=== PATIENT | female | born 1990 | race African-American/Black ===

== ENCOUNTER 2016-09-18 11:09 | Emergency (ER) | payer MEDICAID ==
[~2016-09-18] VITALS: Ht 167.6 cm; Wt 68.0 kg
[~2016-09-18 11:09] MED LIST: DICL75 PO; HYDR50TA94 PO; NEXP68IM
[2016-09-18 11:10] VITALS: BP 149/97; PULSE 78; RESP 20; TEMP 98.3; O2SAT 100
[2016-09-18 11:42] LABS: AUTOMATED NEUTROPHIL # 3.3 TH/MM3 (1.8-7.7); BASOPHIL % 0.5 % (0.0-2.0); EOSINOPHIL # 0.1 TH/MM3 (0-0.4); HEMATOCRIT 30.2 % (35.0-46.0); HEMO FLAGS DIFF FINAL; LYMPH % 27.2 % (9.0-44.0); LYMPHOCYTE # 1.4 TH/MM3 (1.0-4.8); MEAN CELL VOLUME 87.1 FL (80.0-100.0); MEAN CORPUSCULAR HGB CONC 32.2 % (32.0-36.0); NEUT % 61.3 % (16.0-70.0); PLATELET COUNT 267 TH/MM3 (150-450); RED BLOOD COUNT 3.46 MIL/MM3 (4.00-5.30); RED CELL DISTRIBUTION WIDTH 14.4 % (11.6-17.2); WHITE BLOOD COUNT 5.3 TH/MM3 (4.0-11.0)
--- NOTE | 2016-09-18 11:51 | PD ---
HPI Chief Complaint: Chest Pain Time Seen by Provider: 11:51 Travel History International Travel<30 days: No Contact w/Intl Traveler<30days: No Traveled to known affect area: No History of Present Illness HPI 25-year-old Afro-[place] female presents to emergency Department with intermittent chest pain in the past 2 days. Patient has noted some left arm numbness today. Patient states chest tightness and pressure over the anterior chest which is worse with exertion today. Patient does admit to high anxiety and stress this past couple of weeks. Patient denies fever, chills, cough, or wheezing. Patient denies abdominal pain or urinary symptoms. Patient had similar episode in March 2016 with full workup at that time. Patient denies lower extremity pain or swelling. Patient has no known drug allergies. PFSH Past Medical History Anxiety: Yes Depression: Yes Diminished Hearing: No Respiratory: Yes (reports clot behind placenta this ) Immunizations Current: Yes ?: Not LMP: 09/12/16 : 7 Para: 4 Miscarriage: 3 : 0 Social History Alcohol Use: Yes (OCC) Tobacco Use: Yes (every other day) Substance Use: Yes (Marijuana - Occ) Allergies-Medications (Allergen,Severity, Reaction): Coded Allergies: No Known Allergies (Verified , 09/18/16) Reported Meds & Prescriptions Reported Meds & Active Scripts Active No Active Prescriptions or Reported Medications Review of Systems Except as stated in HPI: all other systems reviewed are Neg General / Constitutional: No: Fever Eyes: No: Visual changes HENT: No: Headaches Cardiovascular: Positive: Chest Pain or Discomfort (see history present illness.), No: Palpitations, Irregular Rhythm, Tachycardia, Diaphoresis, Syncope, Dyspnea on exertion, Varicosities, Edema, Varicosities, Phlebitis, Claudication Respiratory: No: Shortness of Breath Gastrointestinal: No: Nausea, Vomiting, Diarrhea, Abdominal Pain Genitourinary: No: Dysuria Musculoskeletal: No: Pain Skin: No Rash Neurologic: No: Weakness Psychiatric: No: Depression Endocrine: No: Polydipsia Hematologic/Lymphatic: No: Easy Bruising Physical Exam Narrative GENERAL: Patient appears in no acute distress. She is a mature to the room without difficulty. SKIN: Warm and dry. Normal color. Normal turgor. HEAD: Atraumatic. Normocephalic. EYES: Pupils equal and round. No scleral icterus. No injection or drainage. ENT: No nasal bleeding or discharge. Mucous membranes pink and moist. Pharynx is clear. Airway is patent. NECK: Trachea midline. No JVD. Neck is supple nontender. CARDIOVASCULAR: Regular rate and rhythm. No murmurs gallops or rubs. RESPIRATORY: No accessory muscle use. Clear to auscultation. Breath sounds equal bilaterally. GASTROINTESTINAL: Abdomen soft, non-tender, nondistended. Hepatic and splenic margins not palpable. MUSCULOSKELETAL: Extremities without clubbing, cyanosis, or edema. No obvious deformities. NEUROLOGICAL: Awake and alert. No obvious cranial nerve deficits. Motor grossly within normal limits. Five out of 5 muscle strength in the arms and legs. Normal speech. PSYCHIATRIC: Appropriate mood and affect; insight and judgment normal. Data Data Last Documented VS Vital Signs Date Time Temp Pulse Resp B/P Pulse Ox O2 Delivery O2 Flow Rate FiO2 09/18/16 11:56 89 18 100 Room Air 09/18/16 11:10 98.3 149/97 Orders Electrocardiogram (09/18/16 11:16) Complete Blood Count With Diff (09/18/16 11:16) Basic Metabolic Panel (Bmp) (09/18/16 11:16) Ckmb (Isoenzyme) Profile (09/18/16 11:16) Troponin I (09/18/16 11:16) Chest, Single Ap (09/18/16 11:16) Iv Access Insert/Monitor (09/18/16 11:16) Ecg Monitoring (09/18/16 11:16) Oxygen Administration (09/18/16 11:16) Oximetry (09/18/16 11:16) D-Dimer (09/18/16 11:53) Lorazepam (Ativan) (09/18/16 12:00) CKMB (09/18/16 11:29) CKMB% (09/18/16 11:29) Iv Access Insert/Monitor (09/18/16 12:46) Ct Pulmonary Angiogram (09/18/16 12:46) Urinalysis - C+S If Indicated (09/18/16 13:00) Sodium Chlor 0.9% 1000 Ml Inj (Ns 1000 M (09/18/16 13:15) Iohexol 350 Inj (Omnipaque 350 Inj) (09/18/16 13:49) Sodium Chlor 0.9% 1000 Ml Inj (Ns 1000 M (09/18/16 14:30) Ckmb (Isoenzyme) Profile (09/18/16 14:40) CKMB (09/18/16 14:48) CKMB% (09/18/16 14:48) Labs Laboratory Tests Test 09/18/16 09/18/16 09/18/16 11:29 13:55 14:48 White Blood Count 5.3 TH/MM3 Red Blood Count 3.46 MIL/MM3 Hemoglobin 9.7 GM/DL Hematocrit 30.2 % Mean Corpuscular Volume 87.1 FL Mean Corpuscular Hemoglobin 28.0 PG Mean Corpuscular Hemoglobin 32.2 % Concent Red Cell Distribution Width 14.4 % Platelet Count 267 TH/MM3 Mean Platelet Volume 9.1 FL Neutrophils (%) (Auto) 61.3 % Lymphocytes (%) (Auto) 27.2 % Monocytes (%) (Auto) 9.0 % Eosinophils (%) (Auto) 2.0 % Basophils (%) (Auto) 0.5 % Neutrophils # (Auto) 3.3 TH/MM3 Lymphocytes # (Auto) 1.4 TH/MM3 Monocytes # (Auto) 0.5 TH/MM3 Eosinophils # (Auto) 0.1 TH/MM3 Basophils # (Auto) 0.0 TH/MM3 CBC Comment DIFF FINAL Differential Comment D-Dimer Quantitative (PE/DVT) 1.47 MG/L FEU Sodium Level 143 MEQ/L Potassium Level 3.5 MEQ/L Chloride Level 109 MEQ/L Carbon Dioxide Level 25.6 MEQ/L Anion Gap 8 MEQ/L Blood Urea Nitrogen 10 MG/DL Creatinine 0.90 MG/DL Estimat Glomerular Filtration 91 ML/MIN Rate Random Glucose 96 MG/DL Calcium Level 8.2 MG/DL Total Creatine Kinase 1964 U/L 1608 U/L Creatine Kinase MB 3.8 NG/ML Creatine Kinase MB % 0.2 % Troponin I 0.04 NG/ML Urine Color LIGHT-YELLOW Urine Turbidity CLEAR Urine pH 8.0 Urine Specific [place] 1.020 Urine Protein NEG mg/dL Urine Glucose (UA) NEG mg/dL Urine Ketones NEG mg/dL Urine Occult Blood NEG Urine Nitrite NEG Urine Bilirubin NEG Urine Urobilinogen 2.0 MG/DL Urine Leukocyte Esterase NEG Urine RBC 1 /hpf Urine WBC 1 /hpf Urine Squamous Epithelial 1 /hpf Cells Urine Bacteria RARE /hpf Microscopic Urinalysis Comment CULT NOT INDICATED MDM Medical Decision Making Medical Screen Exam Complete: Yes Emergency Medical Condition: Yes Medical Record Reviewed: Yes Differential Diagnosis Atypical chest pain. Anxiety. Possible pulmonary embolism. Narrative Course Patient is medically stable at time of exam. EKG is reviewed showing normal sinus rhythm with no ST changes. This is reviewed with Dr. Oseguera. Chest x-ray is reviewed showing no acute process per radiologist. Labs are pending including CBC, CMP, and d-dimer. Patient is given lorazepam 1 mg by mouth. CBC shows hemoglobin of 9.7, with hematocrit of 30.2. Otherwise unremarkable. CMP unremarkable other than a slightly elevated chloride of 109 and calcium 8.2. Troponin 0.04. Total creatinine kinase is elevated 1964. CK-MB is elevated at 3.4. D-dimer is elevated at 1.47. IV access is obtained patient is given 1000 mL normal saline bolus. CTA is ordered as well. Urinalysis is ordered. Patient and labs are reviewed with Dr. Younger. Urinalysis shows no acute finding. CT is negative for PE or other significant findings. Patient is given an additional thousand mL's normal saline bolus. Repeat CPK MB is improved after hydration. Patient is felt stable to be discharged home. Patient will be sent home with instructions to rest and push fluids and follow- up with her primary care physician as needed. Diagnosis Primary Impression: Atypical chest pain Additional Impression: Dehydration Referrals: [facility] Primary Care Physician Patient Instructions: Chest Pain (ED), Dehydration (ED), General Instructions Scripts No Active Prescriptions or Reported Meds Disposition: 01 DISCHARGE HOME Condition: Stable Dereje Hoskins Sep 18, 2016 11:51
[2016-09-18 11:56] VITALS: RESP 18; O2SAT 100
[2016-09-18 11:59] LABS: BICARBONATE 25.6 MEQ/L (21.0-32.0); POTASSIUM 3.5 MEQ/L (3.5-5.1)
[2016-09-18] MEDS ORDERED: LORazepam 1 MG TAB PO ONE (12:00)
--- NOTE | 2016-09-18 12:02 | RADRPT ---
EXAM DATE/TIME: 09/18/2016 11:49 [facility] COMPARISON: CHEST SINGLE AP, March 26, 2016, 20:05. INDICATIONS : Patient has had chest pain for three days. She has left arm numbness. MEDICAL HISTORY : None. SURGICAL HISTORY : None. ENCOUNTER: Initial ACUITY: 1 day PAIN SCORE: 6/10 LOCATION: Bilateral chest FINDINGS: A single view of the chest demonstrates the lungs to be symmetrically aerated without evidence of mas s, infiltrate or effusion. The cardiomediastinal contours are unremarkable. Osseous structures are intact. CONCLUSION: No acute disease. Alfredo Saab MD FACR on September 18, 2016 at 12:00 Board Certified Radiologist. This report was verified electronically.
[2016-09-18 12:25] LABS: CKMB 3.8 NG/ML (0.5-3.6)
[2016-09-18] MEDS ORDERED: SODIUM CHLOR 0.9% 1000 ML INJ 1,000 ML IV ONE ×2 (13:15→14:30)
[2016-09-18] MEDS ORDERED: IOHEXOL 350 MG/ML 10 ML VIAL (for RAD DIAG) IV ONE (13:49)
--- NOTE | 2016-09-18 13:57 | RADRPT ---
EXAM DATE/TIME: 09/18/2016 13:35 [facility] COMPARISON: No previous studies available for comparison. INDICATIONS : Chest pain with left arm numbness IV CONTRAST: 75 cc Omnipaque 350 (iohexol) IV RADIATION DOSE: 6.82 CTDIvol (mGy) MEDICAL HISTORY : None SURGICAL HISTORY : None. ENCOUNTER: Initial ACUITY: 1 day PAIN SCALE: 4/10 LOCATION: anterior chest TECHNIQUE: Volumetric scanning of the chest was performed using a pulmonary embolism protocol MIP images were reconstructed. Using automated exposure control and adjustment of the mA and/or kV acco rding to patient size, radiation dose was kept as low as reasonably achievable to obtain optimal diag nostic quality images. FINDINGS: PULMONARY ARTERIES:No filling defects are seen in the pulmonary arteries through the segmental level. LUNGS: There is no consolidation or pneumothorax . No concerning pulmonary nodule is visualized. PLEURAE: There is no pleural thickening or pleural effusion. MEDIASTINUM: There is good visualization of the great vessels of the middle mediastinum. No evid ence of mediastinal or hilar adenopathy/mass. MUSCULOSKELETAL: Within normal limits for patient age. MISCELLANEOUS: The visualized upper abdominal organs demonstrate no acute abnormality. CONCLUSION: 1. Negative for central pulmonary emboli. 2. There are no suspicious lung lesions identified. Board Certified Radiologist. This report was verified electronically.
[2016-09-18 14:17] LABS: BACTERIA, URINE RARE /hpf; BLOOD, URINE NEG (NEG); GLUCOSE,URINE NEG (NEG); KETONE, URINE NEG (NEG); NITRITE,URINE NEG (NEG); SQUAMOUS EPITHELIAL CELL URINE 1 /hpf (0-5); URINE COLOR LIGHT-YELLOW (YELLW/STRAW)
[2016-09-18 14:19] LABS: COMMENT (UR) CULT NOT INDICATED; CULTURE IF INDICATED CULT NOT INDICATED
[2016-09-18 16:05] LABS: CKMB 3.2 NG/ML (0.5-3.6)
--- NOTE | 2016-09-19 15:34 | EKG ---
Date Performed: 09/18/2016 Time Performed: 11:23:40 PTAGE: 25 years EKG: Sinus rhythm NORMAL ECG PREVIOUS TRACING : 03/26/2016 19.51 Compared to prior tracing no significant change DOCTOR: Omayra Arellano Interpretating Date/Time 09/19/2016 15:32:49
== END 2016-09-18 16:14 | disposition home or self-care (01) ==
LOC: NEPE 11:09
DX: R07.89 Other chest pain (principal); E86.0 Dehydration; R20.0 Anesthesia of skin; F17.210 Nicotine dependence, cigarettes, uncomplicated
CPT/HCPCS: 71010; 71275; 80048; 81001; 82550; 82552; 84484; 85025; 85379; 93005; 96360; 96361; 99285; J7030; Q9967

== ENCOUNTER 2017-08-16 14:27 | Emergency (ER) | payer MEDICAID ==
[~2017-08-16] VITALS: Ht 167.6 cm; Wt 60.0 kg
[2017-08-16 14:28] VITALS: BP 148/91; PULSE 110; RESP 13; TEMP 98.9; O2SAT 94
--- NOTE | 2017-08-16 16:36 | PD ---
HPI Chief Complaint: Anxiety Time Seen by Provider: 16:14 Travel History International Travel<30 days: No Contact w/Intl Traveler<30days: No Traveled to known affect area: No History of Present Illness HPI 26-year-old female presents to the emergency department with 2 complaints. Her first complaint is tightness and radiation of pain across her chest that comes spontaneously for the past 3 days. She has had similar symptoms in the past and relates this to stress and anxiety. Denies chest pain or tightness at this time. Denies shortness of breath now or with onset of the chest pain. Denies tobacco use. Reports marijuana use. Denies family history of cardiac events. Has been worked up for chest pain in the past. Denies recent illness to include cough, nasal congestion, fevers, sore throat, ear pain. Has not taken any medications or tried any treatments to alleviate her symptoms. No known aggravating or relieving factors. Her second complaint is pelvic pressure 6 months that comes and goes. Denies pelvic pressure this time. That she has a lump to the left side of her vagina that she has noticed x3 weeks. Denies vaginal discharge, odor, lesions. Denies dysuria. Denies fever, vomiting, abdominal pain. Last menstrual period was 2 days ago. Pelvic pressure is worse when she sits down or has sex. Has not taken any medications for any treatments to alleviate her symptoms. No known relieving factors. Denies significant past medical history. No primary care provider. Denies allergies. Has no other medical complaints. No other modifying factors or associated signs and symptoms. PFSH Past Medical History Anxiety: Yes Depression: Yes Diminished Hearing: No Respiratory: Yes (reports clot behind placenta this ) Immunizations Current: Yes ?: Not LMP: 08/13/17 : 7 Para: 4 Miscarriage: 3 : 0 Social History Alcohol Use: Yes (OCC) Tobacco Use: No Substance Use: Yes (Marijuana - Occ) Allergies-Medications (Allergen,Severity, Reaction): Coded Allergies: No Known Allergies (Verified Adverse Reaction, Unknown, 08/16/17) Reported Meds & Prescriptions Reported Meds & Active Scripts Active Doxycycline Hyclate 100 Mg Cap 100 Mg PO BID 14 Days Review of Systems Except as stated in HPI: all other systems reviewed are Neg Physical Exam Narrative GENERAL: Well-nourished, well-developed black female patient, in no acute distress; afebrile, nontoxic-appearing SKIN: Warm and dry. HEAD: Atraumatic. Normocephalic. EYES: Pupils equal and round. No scleral icterus. No injection or drainage. ENT: Mucous membranes pink and moist. NECK: Trachea midline. No lymphadenopathy. CARDIOVASCULAR: Regular rate and rhythm. No murmur appreciated. RESPIRATORY: No accessory muscle use. Clear to auscultation. Breath sounds equal bilaterally. GASTROINTESTINAL: Abdomen soft, non-tender, nondistended. Bilateral pelvic region nontender to palpation. Hepatic and splenic margins not palpable. No guarding, rigidity, rebound tenderness. PELVIC: Exam done in the presence of a nurse. Speculum exam reveals edematous and erythematous cervix with light green, mucopurulent, foul-smelling discharge. There is a palpable lump to the right vaginal mojaora near the base of the vagina; it is not visible; nontender palpation; groin lymphadenopathy bilaterally that the patient states is normal for her; suspecting lymph node enlargement, but will have patient follow up with core stripper. Bimanual exam reveals no palpable masses or adnexa tenderness, no uterine tenderness. No cervical motion tenderness. BACK: No CVA tenderness. MUSCULOSKELETAL: No obvious deformities. No clubbing. No cyanosis. No edema. NEUROLOGICAL: Awake and alert. No obvious cranial nerve deficits. Motor grossly within normal limits. Normal speech. PSYCHIATRIC: Appropriate mood and affect; insight and judgment normal. Data Data Last Documented VS Vital Signs Date Time Temp Pulse Resp B/P (MAP) Pulse Ox O2 Delivery O2 Flow Rate FiO2 08/16/17 17:33 93 16 100 Room Air 08/16/17 14:28 98.9 Orders Orders Electrocardiogram (08/16/17 ) Gc And Chlamydia Pcr (08/16/17 16:36) Wet Prep Profile (08/16/17 16:36) Urinalysis - C+S If Indicated (08/16/17 16:36) Ed Urine Pregnancytest Poc (08/16/17 16:36) Ceftriaxone Inj (Rocephin Inj) (08/16/17 17:45) Lidocaine 1% Inj (50 Ml) (Xylocaine 1% I (08/16/17 17:45) Azithromycin (Zithromax) (08/16/17 17:45) Ondansetron Odt (Zofran Odt) (08/16/17 17:45) Ed Discharge Order (08/16/17 18:17) Labs Laboratory Tests Test 08/16/17 16:50 08/16/17 17:30 Urine Color YELLOW Urine Turbidity CLEAR Urine pH 6.5 Urine Specific [place] 1.026 Urine Protein TRACE mg/dL Urine Glucose (UA) NEG mg/dL Urine Ketones NEG mg/dL Urine Occult Blood NEG Urine Nitrite NEG Urine Bilirubin NEG Urine Urobilinogen 2.0 MG/DL Urine Leukocyte Esterase SMALL Urine RBC 1 /hpf Urine WBC 3 /hpf Urine Squamous Epithelial Cells 2 /hpf Urine Mucus MOD /lpf Microscopic Urinalysis Comment CULT NOT INDICATED Clue Cells (Wet Prep) NONE SEEN Vaginal Trichomonas (Wet Prep) NONE SEEN Vaginal Yeast (Wet Prep) NONE SEEN MDM Medical Decision Making Medical Screen Exam Complete: Yes Emergency Medical Condition: Yes Medical Record Reviewed: Yes Differential Diagnosis Anxiety, atypical chest pain, vaginal abscess, chlamydia, gonorrhea, PID Narrative Course 26-year-old female with pelvic pressure 6 months and intermittent chest 3 days. Patient has been seen in the past for atypical chest pain. Denies chest pain or shortness of breath at this time. EKG with normal sinus rhythm and without ST elevation or depression. I discussed the patient with Dr. Garg, my attending physician, and she agrees with my plan of care. Chlamydia, gonorrhea, wet prep, urinalysis, UPT ordered. 1733: Patient will be empirically treated in the emergency Department with azithromycin and Rocephin for cervicitis. Azithromycin and Rocephin ordered. Will treat the patient with doxycycline for suspected PID. 1813: Urinalysis without signs of infection. Negative for vaginal yeast, bacterial vaginosis, Trichomonas. Instructed patient to follow up with gynecology. Instructed patient to follow up with primary care provider. Patient verbalizes understanding and agreement with treatment plan. Patient is medically cleared and stable for discharge. Discussed reasons to return to the emergency department. Patient agrees with treatment plan. The patients vital signs are stable and the patient is stable for outpatient follow-up and treatment. Patient discharged home, stable and in no acute distress. Diagnosis Primary Impression: Cervicitis Additional Impression: Atypical chest pain Referrals: [facility] Primary Care Physician Patient Instructions: Cervicitis (ED), Chest Pain (ED), General Instructions, Pelvic Inflammatory Disease (ED) Additional Instructions: Avoid sexual activity for 14 days No sexual activity with your partner/s until they have been treated and waited 14 days Inform all sexual partners within the past 3-6 months that they need to be evaluated and treated Use condoms every time you have sex Warm compresses to vaginal lump Follow-up with primary care provider Return to the emergency department immediately with worsening of symptoms Med/Other Pt SpecificInfo: Prescription(s) given Scripts Doxycycline Hyclate (Doxycycline Hyclate) 100 Mg Cap 100 MG PO BID for Infection for 14 Days, #28 CAP 0 Refills Prov: Lyubov Sewell 08/16/17 Disposition: 01 DISCHARGE HOME Condition: Stable Lyubov Sewell Aug 16, 2017 16:35
--- NOTE | 2017-08-16 16:50 | PD ---
Physical Exam Date Seen by Provider: Aug 16, 2017 Narrative Patient presents with anxiety. Data Data Last Documented VS Vital Signs Date Time Temp Pulse Resp B/P (MAP) Pulse Ox O2 Delivery O2 Flow Rate FiO2 08/16/17 14:28 98.9 110 13 148/91 (110) 94 Orders Orders Electrocardiogram (08/16/17 ) Gc And Chlamydia Pcr (08/16/17 16:36) Wet Prep Profile (08/16/17 16:36) Urinalysis - C+S If Indicated (08/16/17 16:36) Ed Urine Pregnancytest Poc (08/16/17 16:36) MDM Supervised Visit with JOHNSON: Yes Narrative Course I, Dr. Garg, have reviewed the advance practice practitioner's documentation and am in agreement, met with the patient face to face, made the diagnosis, and the medical decision making was done by me. *My assessment and Findings: Patient presents with symptoms of anxiety. Her lungs are clear with full air movement throughout. She has previously been evaluated from a cardiac standpoint. The workup was negative. She is only 26 years old. Please see Lyubov Sewell NP's note for results of laboratory and radiographic evaluation, ED course, final diagnosis and disposition Scripts No Active Prescriptions or Reported Meds Stephanie Garg MD Aug 16, 2017 16:50
[2017-08-16 17:06] LABS: BILIRUBIN, URINE NEG (NEG); BLOOD, URINE NEG (NEG); GLUCOSE,URINE NEG (NEG); KETONE, URINE NEG (NEG); MUCUS URINE MOD /lpf (OCC); NITRITE,URINE NEG (NEG); PH, URINE 6.5 (5.0-8.5); SQUAMOUS EPITHELIAL CELL URINE 2 /hpf (0-5); URINE COLOR YELLOW (YELLW/STRAW); URINE LEUKOCYTE ESTERASE SMALL (NEG)
[2017-08-16 17:33] VITALS: PULSE 93; RESP 16; O2SAT 100
[2017-08-16] MEDS ORDERED: DOXY100C PO (17:37)
[2017-08-16] MEDS ORDERED: ONDANSETRON ODT 4 MG TAB PO ONE (17:45)
[2017-08-16] MEDS ORDERED: AZITHROMYCIN 250 MG TAB PO ONE (17:45)
[2017-08-16] MEDS ORDERED: cefTRIAXone 250 MG VIAL IM ONE (17:45)
[2017-08-16] MEDS ORDERED: LIDOCAINE HCL 1% 50 ML VIAL IM ONE (17:45)
--- NOTE | 2017-08-17 11:11 | EKG ---
Date Performed: 08/16/2017 Time Performed: 14:58:14 PTAGE: 26 years EKG: Sinus rhythm NORMAL ECG Since the prior tracing, there has been no significant change PREVIOUS TRACING : 09/18/2016 11.23 DOCTOR: Ramsey Gutierrez Interpretating Date/Time 08/17/2017 11:05:14
== END 2017-08-16 18:44 | disposition home or self-care (01) ==
LOC: NEPD 14:27
DX: N72 Inflammatory disease of cervix uteri (principal); R07.89 Other chest pain; F12.10 Cannabis abuse, uncomplicated; F41.9 Anxiety disorder, unspecified; F32.9 Major depressive disorder, single episode, unspecified
CPT/HCPCS: 81001; 84703; 87210; 87491; 87591; 93005; 96372; 99284; J0696

== ENCOUNTER 2017-12-17 11:19 | Emergency (ER) | payer MEDICAID ==
[~2017-12-17 11:19] MED LIST changes: -DICL75 PO; +DOXY100C PO; -HYDR50TA94 PO; -NEXP68IM
[2017-12-17 11:44] VITALS: BP 130/84; PULSE 75; RESP 17; TEMP 97.2; O2SAT 100
[2017-12-17] MEDS ORDERED: SODIUM CHLOR 0.9% 1000 ML INJ 1,000 ML IV SCH ×2 (12:16→13:45)
--- NOTE | 2017-12-17 12:19 | PD ---
HPI Chief Complaint: Healthcare Or Medical Problem/Complaint Time Seen by Provider: 11:57 Travel History International Travel<30 days: No Contact w/Intl Traveler<30days: No Traveled to known affect area: No History of Present Illness HPI This is a 26-year-old female who presents to the emergency department with abdominal pain that started this morning after she drank hard liquor last evening. She has had multiple episodes of vomiting. Her abdominal pain is sharp, all over her abdomen, severe with no fevers or chills. She has also had vaginal discharge for 3 weeks. She has had pain once like this before in the setting of drinking too much. PFSH Past Medical History Anxiety: Yes Depression: Yes Diminished Hearing: No Respiratory: Yes (reports clot behind placenta this ) Immunizations Current: Yes Influenza Vaccination: No ?: Not LMP: 12/14/17 : 7 Para: 4 Miscarriage: 3 : 0 Past Surgical History Surgical History: No Previous Surgery Social History Alcohol Use: Yes (socially) Tobacco Use: No Substance Use: Yes (Marijuana - Occ) Allergies-Medications (Allergen,Severity, Reaction): Coded Allergies: No Known Allergies (Verified Adverse Reaction, Unknown, 12/17/17) Reported Meds & Prescriptions Reported Meds & Active Scripts Active No Active Prescriptions or Reported Medications Review of Systems Except as stated in HPI: all other systems reviewed are Neg Physical Exam Narrative GENERAL:Well appearing, no acute distress SKIN: Focused skin assessment warm and dry. HEAD: Atraumatic. Normocephalic. EYES: Pupils equal and round. No injection or drainage. ENT: Moist mucous membranes NECK: Trachea midline. CARDIOVASCULAR: Regular rate and rhythm. No murmur appreciated. RESPIRATORY: Clear to auscultation. Breath sounds equal bilaterally. GASTROINTESTINAL: Abdomen soft, tender to palpation in the epigastrium and left upper quadrant with no rebound or guarding. PASSPORT APPLICATION EXAMINER: No vaginal discharge and no cervical motion or adnexal tenderness. MUSCULOSKELETAL: No obvious deformities. NEUROLOGICAL: Awake and alert. No obvious cranial nerve deficits. Moving all extremities. PSYCHIATRIC: Appropriate mood and affect; insight and judgment normal. Data Data Last Documented VS Vital Signs Date Time Temp Pulse Resp B/P (MAP) Pulse Ox O2 Delivery O2 Flow Rate FiO2 12/17/17 14:04 99 Room Air 12/17/17 11:44 97.2 75 17 130/84 (99) Orders Orders Complete Blood Count With Diff (6/14/18 12:16) Comprehensive Metabolic Panel (12/17/17 12:16) Lipase (12/17/17 12:16) Iv Access Insert/Monitor (12/17/17 12:16) Ecg Monitoring (12/17/17 12:16) Oximetry (12/17/17 12:16) Sodium Chlor 0.9% 1000 Ml Inj (Ns 1000 M (12/17/17 12:16) Sodium Chloride 0.9% Flush (Ns Flush) (12/17/17 12:30) Promethazine Inj (Phenergan Inj) (12/17/17 12:30) Ed Urine Pregnancytest Poc (12/17/17 12:17) Chest, Single Ap (12/17/17 ) Potassium Chloride Eff (K-Lyte Cl Eff) (12/17/17 13:45) Sodium Chlor 0.9% 1000 Ml Inj (Ns 1000 M (12/17/17 13:45) Lactic Acid (12/17/17 13:41) Blood Gas Venous (Vbg) (12/17/17 13:41) Urinalysis - C+S If Indicated (12/17/17 14:12) Ct Abd/Pel W Iv Contrast(Rout) (12/17/17 ) Blood Culture (12/17/17 15:21) Piperacil-Tazo 3.375 Gm Premix (Zosyn 3. (12/17/17 15:30) Iohexol 350 Inj (Omnipaque 350 Inj) (12/17/17 15:45) Labs Laboratory Tests Test 12/17/17 12:14 12/17/17 13:49 12/17/17 14:16 12/17/17 14:27 White Blood Count 16.3 TH/MM3 Red Blood Count 4.08 MIL/MM3 Hemoglobin 12.0 GM/DL Hematocrit 36.7 % Mean Corpuscular Volume 89.8 FL Mean Corpuscular Hemoglobin 29.3 PG Mean Corpuscular Hemoglobin Concent 32.6 % Red Cell Distribution Width 16.4 % Platelet Count 321 TH/MM3 Mean Platelet Volume 10.1 FL Neutrophils (%) (Auto) 85.8 % Lymphocytes (%) (Auto) 8.7 % Monocytes (%) (Auto) 4.7 % Eosinophils (%) (Auto) 0.1 % Basophils (%) (Auto) 0.7 % Neutrophils # (Auto) 14.0 TH/MM3 Lymphocytes # (Auto) 1.4 TH/MM3 Monocytes # (Auto) 0.8 TH/MM3 Eosinophils # (Auto) 0.0 TH/MM3 Basophils # (Auto) 0.1 TH/MM3 CBC Comment DIFF FINAL Differential Comment Blood Urea Nitrogen 16 MG/DL Creatinine 1.06 MG/DL Random Glucose 53 MG/DL Total Protein 7.8 GM/DL Albumin 4.5 GM/DL Calcium Level 8.7 MG/DL Alkaline Phosphatase 70 U/L Aspartate Amino Transf (AST/SGOT) 57 U/L Alanine Aminotransferase (ALT/SGPT) 53 U/L Total Bilirubin 0.6 MG/DL Sodium Level 144 MEQ/L Potassium Level 2.9 MEQ/L Chloride Level 109 MEQ/L Carbon Dioxide Level 16.3 MEQ/L Anion Gap 19 MEQ/L Estimat Glomerular Filtration Rate 75 ML/MIN Lipase 43 U/L Blood Gas Puncture Site LINE Blood Gas Patient Temperature 98.6 Venous Blood pH 7.31 Venous Blood Partial Pressure CO2 34 mmHg Venous Blood Partial Pressure O2 51 mmHg Venous Blood HCO3 16 mmol/L Venous Blood Oxygen Saturation 80 % Venous Blood Oxygen Content 12.7 Vol % Venous Blood Base Excess -8.6 mmol/L Blood Gas Inspired Oxygen 21 % Lactic Acid Level 4.7 mmol/L Urine Color YELLOW Urine Turbidity HAZY Urine pH 5.0 Urine Specific Joseph 1.025 Urine Protein 30 mg/dL Urine Glucose (UA) NEG mg/dL Urine Ketones 20 mg/dL Urine Occult Blood SMALL Urine Nitrite NEG Urine Bilirubin NEG Urine Leukocyte Esterase NEG Urine RBC LESS THAN 1 /hpf Urine WBC 2 /hpf Urine Squamous Epithelial Cells 2 /hpf Urine Bacteria OCC /hpf Urine Mucus MOD /lpf Microscopic Urinalysis Comment CULT NOT INDICATED MDM Medical Decision Making Medical Screen Exam Complete: Yes Emergency Medical Condition: Yes Interpretation(s) Afebrile, normotensive Leukocytosis Hypokalemia Lactic acidosis Urinalysis is negative for infection Last 24 hours Impressions Chest X-Ray 12/17/17 0000 Signed Impressions: CONCLUSION: Negative examination. Stable compared to prior dated 09/18/2016. Abdomen/Pelvis CT 12/17/17 0000 Signed Impressions: CONCLUSION: Negative CT Abdomen and Pelvis with contrast. Differential Diagnosis Pancreatitis, alcoholic gastritis, dehydration, perforated ulcer Narrative Course This is a 26-year-old female who was drinking alcohol last evening and comes in this morning with severe abdominal pain and vomiting. She is placed on a monitor and an IV was established. Labs were obtained which demonstrate a leukocytosis and a metabolic acidosis with an anion gap. Lactic acid is 4.7. Patient was given 2 L of IV fluid and she was empirically covered with IV antibiotics. She has no other sirs criteria aside from her leukocytosis. CT abdomen pelvis is reassuring. Patient feels remarkably better after Zofran and fluids and is able to drink and her abdominal pain has subsided. I suspect the patient's lactic acidosis and electrolyte abnormalities are in the setting of severe vomiting from alcoholic gastritis. I do not think she requires admission and she is able to tolerate fluids and she feels much better. I do not think she has underlying sepsis and I do not think she has mesenteric ischemia given her preceding binge drinking prior to this episode. I think the patient can be safely discharged and she agrees that if she feels worse she will return to the emergency department. Diagnosis Primary Impression: Alcoholic gastritis Qualified Codes: K29.20 - Alcoholic gastritis without bleeding Patient Instructions: General Instructions Additional Instructions: If you develop severe or worsening abdominal pain, fever>100.4, persistent vomiting or inability to eat or drink return to the emergency department immediately. Follow up with your primary care physician in 1-2 days for a check-up. Med/Other Pt SpecificInfo: Prescription(s) given Scripts Ondansetron Odt (Zofran Odt) 4 Mg Tab 4 MG SL Q6HR Y for Nausea/Vomiting, #15 TAB 0 Refills Prov: Rina Vasquez MD 12/17/17 Disposition: 01 DISCHARGE HOME Condition: Stable Rina Vasquez MD Dec 17, 2017 12:19
[2017-12-17] MEDS ORDERED: SODIUM CHLORIDE 0.9% FLUSH 10 ML FLUSH IV FLUSH PRN (12:30)
[2017-12-17] MEDS ORDERED: PROMETHAZINE INJ 25 MG/ML VIAL IM ONE (12:30)
--- NOTE | 2017-12-17 13:03 | RADRPT ---
EXAM DATE: 12/17/2017 12:44 PM EDT AGE/SEX: 26 years / Female INDICATIONS: Shortness of breath and chest pain. CLINICAL DATA: This is the patient's initial encounter. Patient reports that signs and symptoms have been present for 3 days and indicates a pain score of 7/10. MEDICAL/SURGICAL HISTORY: None. None. COMPARISON: [facility] [place] S[place], 09/18/2016. . FINDINGS: A single AP view of the chest demonstrates the lungs to be symmetrically aerated without evidence of mass, infiltrate or effusion. The cardiomediastinal contours are unremarkable. Osseous structures a re intact. CONCLUSION: Negative examination. Stable compared to prior dated 09/18/2016. Electronically signed by: Akash Saab MD 12/17/2017 1:02 PM EDT
[2017-12-17 13:04] LABS: BASOPHIL # 0.1 TH/MM3 (0-0.2); BASOPHIL % 0.7 % (0.0-2.0); EOSINOPHIL % 0.1 % (0.0-4.0); HEMATOCRIT 36.7 % (35.0-46.0); LYMPH % 8.7 % (9.0-44.0); LYMPHOCYTE # 1.4 TH/MM3 (1.0-4.8); MEAN CELL VOLUME 89.8 FL (80.0-100.0); MEAN CORPUSCULAR HEMOGLOBIN 29.3 PG (27.0-34.0); MEAN CORPUSCULAR HGB CONC 32.6 % (32.0-36.0); MEAN PLATELET VOLUME 10.1 FL (7.0-11.0); MONO % 4.7 % (0.0-8.0); MONOCYTE # 0.8 TH/MM3 (0-0.9); NEUT % 85.8 % (16.0-70.0); PLATELET COUNT 321 TH/MM3 (150-450); RED BLOOD COUNT 4.08 MIL/MM3 (4.00-5.30); RED CELL DISTRIBUTION WIDTH 16.4 % (11.6-17.2); WHITE BLOOD COUNT 16.3 TH/MM3 (4.0-11.0)
[2017-12-17 13:32] LABS: ALBUMIN 4.5 GM/DL (3.4-5.0); ALKALINE PHOSPHATASE 70 U/L (45-117); ALT (GPT) 53 U/L (10-53); AST (GOT) 57 U/L (15-37); BICARBONATE 16.3 MEQ/L (21.0-32.0); BLOOD UREA NITROGEN 16 MG/DL (7-18); CALCIUM 8.7 MG/DL (8.5-10.1); CHLORIDE 109 MEQ/L (98-107); CREATININE 1.06 MG/DL (0.50-1.00); GLOMERULAR FILTRATION RATE 75 ML/MIN (>89); GLUCOSE,RANDOM 53 MG/DL (74-106); SODIUM (NA) 144 MEQ/L (136-145); TOTAL BILIRUBIN ADULT 0.6 MG/DL (0.2-1.0); TOTAL PROTEIN 7.8 GM/DL (6.4-8.2)
[2017-12-17] MEDS ORDERED: POTASSIUM CHLORIDE 25 MEQ EFFERVESCENT TAB PO ONE (13:45)
[2017-12-17 14:04] VITALS: O2SAT 99
[2017-12-17] MEDS ORDERED: PIPERACIL-TAZO 3.375 GM PREMIX 50 ML IV ONE (15:30)
[2017-12-17 15:38] LABS: BACTERIA, URINE OCC /hpf; BILIRUBIN, URINE NEG (NEG); BLOOD, URINE SMALL (NEG); GLUCOSE,URINE NEG (NEG); MUCUS URINE MOD /lpf (OCC); NITRITE,URINE NEG (NEG); SQUAMOUS EPITHELIAL CELL URINE 2 /hpf (0-5); URINE COLOR YELLOW (YELLW/STRAW); URINE LEUKOCYTE ESTERASE NEG (NEG)
[2017-12-17] MEDS ORDERED: IOHEXOL 350 MG/ML 10 ML VIAL (for RAD DIAG) IVCONTRAST ONE (15:45)
--- NOTE | 2017-12-17 15:55 | RADRPT ---
EXAM DATE: 12/17/2017 3:49 PM EDT AGE/SEX: 26 years / Female INDICATIONS: Pain and pressure pelvic area CLINICAL DATA: This is the patient's initial encounter. Patient reports that signs and symptoms have been present for 1 day and indicates a pain score of 10/10. MEDICAL/SURGICAL HISTORY: None. None. ORAL CONTRAST: No oral contrast ingested. RADIATION DOSE: 6.78 CTDI (mGy) COMPARISON: No prior exams available for comparison. TECHNIQUE: Multiple contiguous axial images were obtained through the abdomen and pelvis following b olus infusion of 75 ml Omnipaque 350 (iohexol) nonionic water-soluble contrast as a single exam dos e. No oral contrast ingested. Using automated exposure control and adjustment of the mA and/or kV ac cording to patient size, the radiation dose was kept as low as reasonably achievable to obtain optima l diagnostic quality images. FINDINGS: Lower Lungs: The visualized lower lungs are clear. Liver: The liver has a homogeneous density without space-occupying lesion. There is no dilation of th e biliary tree. Spleen: Homogeneous density without enlargement. Pancreas: Unremarkable without mass or calcification. Kidneys: Normal in size and shape. No evidence of mass or hydronephrosis. Adrenal Glands: Unremarkable. Aorta: The aorta and proximal iliac vessels are grossly unremarkable without aneurysmal dilation. Bowel/Mesentery: The bowel loops are grossly unremarkable. The cecum and sigmoid colon have a normal configuration. Abdominal Wall: Intact. Retroperitoneum: No evidence of adenopathy in the retrocrural, para-aortic, or deep pelvic regions. Bladder: Contours are smooth. Reproductive Organs: No abnormal masses or calcifications seen. Inguinal: The inguinal region is unremarkable without evidence of adenopathy. Bony Structures: Unremarkable. CONCLUSION: Negative CT Abdomen and Pelvis with contrast. Electronically signed by: Robson Anderson MD 12/17/2017 3:54 PM EDT
[2017-12-17 16:24] LABS: KETONE, URINE 20 mg/dL (NEG)
[2017-12-17] MEDS ORDERED: ZOFR4TAB3 SL (16:31)
[2017-12-17 16:38] VITALS: BP 137/82; PULSE 63; RESP 15; O2SAT 100
== END 2017-12-17 16:44 | disposition home or self-care (01) ==
LOC: NEPD 11:19
DX: K29.20 Alcoholic gastritis without bleeding (principal); D72.829 Elevated white blood cell count, unspecified; E87.6 Hypokalemia; E87.2 Acidosis; N89.8 Other specified noninflammatory disorders of vagina; Z86.59 Personal history of other mental and behavioral disorders
CPT/HCPCS: 71045; 74177; 80053; 81001; 82805; 83605; 83690; 84703; 85025; 87040; 96361; 96372; 96374; 99285; J2543; J2550; J7030; Q9967